=== PATIENT | female | born 1950 | race Caucasian/White ===

== ENCOUNTER 2016-09-23 18:40 | Observation (INO) | payer BC ==
[2016-09-23 19:44] LABS: Hematocrit 42 % (35-47); Hemoglobin 14.1 g/dl (12.0-16.0); Mean Corpuscular HGB Conc 34 g/dl (31-36); Mean Corpuscular Hemoglobin 30 pg (27-31); Mean Corpuscular Volume 89 fL (80-97); Mean Platelet Volume 10 um3 (7.4-10.4); Red Blood Count 4.74 10^6/ul (4.0-5.4); Red Cell Distribution Width 13 % (10.5-15); White Blood Count 8.6 10^3/ul (3.5-10.8)
[2016-09-23 19:55] LABS: Albumin 4.2 g/dL (3.2-5.2); BUN/Creatinine Ratio 11.6 (8-20); Calcium 9.3 mg/dL (8.6-10.3); EGFR African American 75.9 (>60); Globulin 3.1 g/dL (2-4); Magnesium 2.1 mg/dL (1.9-2.7); Total Bilirubin 0.3 mg/dL (0.2-1.0); Total Protein 7.3 g/dL (6.4-8.9)
[2016-09-23 20:08] LABS: TSH (Thyroid Stimulating Horm) 2.05 mcIU/mL (0.34-5.60)
[2016-09-23 20:15] LABS: Urine Bilirubin Negative (Negative); Urine Glucose Negative (Negative); Urine Nitrite Negative (Negative)
--- NOTE | 2016-09-23 20:22 | RAD ---
Indication: Palpitations. Single frontal view of the chest performed at 1935 hours was reviewed. No prior study is available for comparison. No mediastinal shift is noted. Heart is of normal size and configuration. Lung berry appear clear. IMPRESSION: NO ACTIVE CARDIOPULMONARY DISEASE IS NOTED.
--- NOTE | 2016-09-23 21:00 | ED ---
Elodia Padron Matthew, scribed for Wilmar Li on 09/23/16 at 1934 . Palpitations / Dysrhythmia - HPI Summary HPI Summary: A 65 y/o female presents to the ED with palpitations for the past 2 hours. She' s had them intermittently for the past week, but they intensified in the last 2 hours. The palpitations is described as irregular. Associated symptoms include SOB and mild dizziness. The patient denies chest pain. She's never had a stress test. No Hx of AL. The patient is a former smoker. - History of Current Complaint Chief Complaint: EDShortnessOfBreath Time Seen by Provider: 09/23/16 19:18 Hx Obtained From: Patient Onset/Duration: Gradual Onset, Lasting Hours, Still Present Severity Initially: Moderate Severity Currently: Moderate Character: Irregular Associated Signs & Symptoms: Dizzy, Shortness of Breath - Allergy/Home Medications Allergies/Adverse Reactions: Allergies Allergy/AdvReac Type Severity Reaction Status Date / Time Morphine Allergy Severe Vomiting Verified 07/17/12 15:34 DECLAMYCIN Allergy Intermediate Hives Uncoded 04/24/12 16:46 ENVIRONMENTAL Allergy Mild Congestion Uncoded 05/11/12 18:29 PMH/Surg Hx/FS Hx/Imm Hx Endocrine/Hematology History: Denies: Hx Diabetes, Hx Thyroid Disease Cardiovascular History: Denies: Hx Hypertension Respiratory History: Denies: Hx Asthma, Hx Chronic Obstructive Pulmonary Disease (COPD) GI History: Denies: Hx Ulcer - Cancer History Cancer Type, Location and Year: GLAUCOMA Hx Chemotherapy: No Hx Radiation Therapy: No - Surgical History Surgery Procedure, Year, and Place: HYSTERECTOMY. APPENDECTOMY. CATARACT RIGHT EYE Infectious Disease History: No Infectious Disease History: Denies: Hx Hepatitis, Hx Human Immunodeficiency Virus (HIV), Traveled Outside the [place] in Last 30 Days - Family History Known Family History: Positive: Unknown - The patient is adopted - Social History Alcohol Use: None Substance Use Type: Reports: None Smoking Status (MU): Never Smoked Tobacco Review of Systems Constitutional: Negative Eyes: Negative ENT: Negative Positive: Palpitations. Negative: Chest Pain Positive: Shortness Of Breath Gastrointestinal: Negative Genitourinary: Negative Musculoskeletal: Negative Skin: Negative Neurological: Other - Dizziness Psychological: Normal All Other Systems Reviewed And Are Negative: Yes Physical Exam Triage Information Reviewed: Yes Vital Signs On Initial Exam: Initial Vitals Temp Pulse Resp BP Pulse Ox 97.9 F 44 16 182/79 99 09/23/16 18:41 09/23/16 18:41 09/23/16 18:41 09/23/16 18:41 09/23/16 18:41 Vital Signs Reviewed: Yes Appearance: Positive: Well-Appearing, No Pain Distress Skin: Positive: Warm, Skin Color Reflects Adequate Perfusion, Dry Head/Face: Positive: Normal Head/Face Inspection Eyes: Positive: EOMI, NASIR ENT: Positive: Normal ENT inspection Neck: Positive: Supple, Nontender Cardiovascular: Positive: RRR, Pulses are Symmetrical in both Upper and Lower Extremities Abdomen Description: Positive: Nontender, Soft Bowel Sounds: Positive: Present Musculoskeletal: Positive: Normal, Strength/ROM Intact Neurological: Positive: Normal, Sensory/Motor Intact, Alert, Oriented to Person Place, Time Psychiatric: Positive: Affect/Mood Appropriate Diagnostics - Vital Signs Vital Signs Temp Pulse Resp BP Pulse Ox 09/23/16 18:41 97.9 F 44 16 182/79 99 - Laboratory Result Diagrams: 09/23/16 18:55 09/23/16 18:55 Lab Statement: Any lab studies that have been ordered have been reviewed, and results considered in the medical decision making process. - Radiology CXR Xray Interpretation: No Acute Changes - IMPRESSION: NO ACTIVE CARDIOPULMONARY DISEASE IS NOTED. Radiology Interpretation Completed By: Radiologist - EKG 18:52 Cardiac Rate: NL - 80 bpm EKG Rhythm: Sinus Rhythm EKG Interpretation: Bigeminy Course/Dx - Course Assessment/Plan: A 65 y/o female presents to the ED with palpitations for the past 2 hours. She's had them intermittently for the past week, but they intensified in the last 2 hours. EKG showed sinus rhythm at 80 bpm with bigeminy. CXR was negative. Discussed the case with Dr. Cabezas who recommended admission for stress test and Echocardiogram in the morning. Discussed the case with Dr. Palacios who will admit the patient into his services. - Diagnoses Provider Diagnoses: Palpitations, Dizziness, r/o acs - Physician Notifications Discussed Care Of Patient With: Dr. Cabezas (Cardiology) at 20:43 -- Notified of patient's history and recommends admission for Echocardiogram and stress test in the morning. Dr. Palacios (Hospitalist) at 20:53 -- Notified of paitent' s history and will admit the patient. Discharge - Discharge Plan Condition: Stable Disposition: ADMITTED TO [facility] Referrals: Mike Eng, SENIOR DESIGNER [Primary Care Provider] - The documentation as recorded by the Elodia martines Matthew accurately reflects the service I personally performed and the decisions made by , Wilmar Li.
[2016-09-23] MEDS ORDERED: Melatonin (NF) 3 MG TAB PO PRN (21:03)
[2016-09-23] MEDS ORDERED: traMADol TAB* 50 MG PO PRN (21:03)
[2016-09-23] MEDS ORDERED: Acetaminophen TAB* 325 MG PO PRN (21:03)
--- NOTE | 2016-09-23 23:02 | HP ---
HOSPITAL MEDICINE HISTORY AND PHYSICAL: DATE OF ADMISSION: 09/23/16 PRIMARY CARE PROVIDER: Mike Eng NP ATTENDING PHYSICIAN: Dr. Mikel Palacios* (dictation provided by Zenaida Rodriguez NP). CHIEF COMPLAINT: Shortness of breath and palpitations. HISTORY OF PRESENT ILLNESS: Ms. Ceja is a 65-year-old female with past medical history of glaucoma, who presents today to the hospital with concern for shortness of breath and palpitations. Ms. Ceja states that for a long time now she has had issues with intermittent palpitations. She has what she describes as brief spells where she feels a slight bit short of breath and she feels like palpitation in her chest. However, today she had an episode that lasted over an hour and she became concerned that something new was going on and therefore came to the emergency room for evaluation. She denies any recent fever, chills, nausea, abdominal pain, or diarrhea. She states that she has been eating and drinking normally. She does complain of a light congestion and what she suspects as a cold, but again no fever. She states that these spells happen at rest and seem not to have any clear rhyme or reason, but she has been concerned by the fact that they have been increasing in frequency and length. She reports in the past, she has had some similar, but much less intense spells and she had been placed on [place] Thyroid for that but she had been taken off that in 2002 or 2003 by her primary care provider. In the emergency room, Ms. Ceja was found to be in ventricular bigeminy. However, there was concern that there was ST depressions in the inferior lateral leads on her EKG. Her labs are essentially unremarkable and her troponin is 0. PAST MEDICAL HISTORY: 1. History of palpitations. 2. Glaucoma. MEDICATIONS: 1. Ascorbic acid 1000 mg p.o. daily. 2. Calcium acetate/magnesium carb 1 tab p.o. at bedtime. 3. Tafluprost 0.0015% at bedtime. ALLERGIES: To MORPHINE. FAMILY HISTORY: Unobtainable as the patient is adopted. SOCIAL HISTORY: No report of alcohol, tobacco, or drug use. The patient lives with her and her name is Bird and she is the healthcare proxy. REVIEW OF SYSTEMS: A 14-point review of systems was completed with Ms. Ceja and all those not mentioned above were negative. PHYSICAL EXAMINATION GENERAL: Ms. Ceja is sitting in the bed. She is frustrated about being asked the same question over and over, but is in no acute distress. VITAL SIGNS: Temperature 97.9, pulse rate 78, respiratory rate 16, O2 saturation 95% on room air, blood pressure 153/87. LUNGS: Clear to auscultation bilaterally with no accessory muscle use and good aeration. HEART: S1, S2. No murmur, rub, or gallop and regular. ABDOMEN: Soft, nontender with bowel sounds positive x4. NEURO: She is alert and oriented x3. She moves all extremities equally. There is no facial asymmetry or focal weakness. Extraocular movements are intact. DIAGNOSTIC STUDIES/LABORATORY DATA: WBC 8.6, hemoglobin 14.1, hematocrit 42, platelet count 203. INR 0.96, D-dimer less than 200. Sodium 133, potassium 4.0, chloride 100, serum bicarbonate 27, BUN 11, creatinine 0.95, glucose 118, lactic acid 1.2, troponin 0.00, TSH 2.05. Urine is negative for sign of infection. Chest x-ray is normal. EKG is read by Dr. Cabezas as showing ventricular bigeminy, but also showed concern for ST segment abnormalities in the inferior leads. ASSESSMENT: Ms. Ceja is a 65-year-old female with no significant past medical history who presents today at the hospital with concern for worsening episodes of palpitations associated with shortness of breath. Our plans are for observation in the hospital for the followin. Shortness of breath with palpitations. The patient has an abnormal EKG and the concern is that possibly she has evidence of ischemia. Plans will be for observations overnight on telemetry floor. She is going to have a repeat EKG now as she is out of the ventricular bigeminy in order to reassess those ST segments again. In the morning, she will go on for an exercise stress test and transthoracic echocardiogram. 2. Glaucoma. Continue home medications. 3. DVT prophylaxis with early mobility. 4. Disposition to telemetry floor. TIME SPENT: Approximately 60 minutes were spent on admission of this patient, more than half the time spent with the patient at the bedside, reviewing the events leading up to this hospitalization, performing the physical examination, and reviewing my plan of care. ZENAIDA RODRIGUEZ NP CC: Mike Eng, SCRAP PREPARER* [id number]/[facility] #: [id number] [facility] HOSPITALYvonne
[2016-09-24] MEDS ORDERED: Aspirin Low Dose CHEW TAB* 81 MG PO ONE (02:00)
--- NOTE | 2016-09-24 10:02 | PN ---
Subjective Date of Service: 09/24/16 Interval History: Patient seen and examined at bedside. She denies CP, SOB, abd pain, n/v. She reports a history of palpitations going back as far as 10 years. She was once on thyroid medication but was found to have to have stable thyroid function in her labs and was discontinued. She had a cardiology consultation several years back but states she was told that "it as all in my head." Telemetry: SR with PVCs 80s Family History: Unchanged from Admission Social History: Unchanged from Admission Past Medical History: Unchanged from Admission Objective Active Medications: Acetaminophen (Tylenol Tab*) 650 mg PO Q6H PRN PRN Reason: FEVER/PAIN Melatonin (Melatonin (Nf)) 3 mg PO BEDTIME PRN; Protocol PRN Reason: Sleep Non-Formulary Medication (Tafluprost 0.0015%(Nf) [Zioptan 0.0015% (Nf)]) 0.015 mg OP BEDTIME HAILEY Tramadol HCl (Ultram*) 50 mg PO Q6H PRN PRN Reason: PAIN Vital Signs 09/23/16 09/24/16 22:16 03:35 Temperature 97.5 F 98.2 F Pulse Rate 83 73 Respiratory 16 16 Rate Blood Pressure 149/85 124/66 (mmHg) O2 Sat by Pulse 96 97 Oximetry Oxygen Devices in Use Now: None Appearance: Female patient, sitting up in bed, in NAD Eyes: PERRLA Ears/Nose/Mouth/Throat: Clear Oropharnyx, Mucous Membranes Moist Neck: NL Appearance and Movements; NL JVP Respiratory: Symmetrical Chest Expansion and Respiratory Effort, Clear to Auscultation Cardiovascular: NL Sounds; No Murmurs; No JVD, RRR Abdominal: NL Sounds; No Tenderness; No Distention Extremities: No Edema Skin: No Rash or Ulcers Neurological: Alert and Oriented x 3 Lines/Tubes/Other Access: Clean, Dry and Intact Peripheral IV Nutrition: Taking PO's Result Diagrams: 09/23/16 18:55 09/23/16 18:55 Assess/Plan/Problems-Billing Assessment: - Patient Problems (1) Palpitations Code(s): R00.2 - PALPITATIONS Comment: With SOB and concern for ST segment abnormalities in the inferior leads. Troponins unremarkable, 0.00 x 3 Stress test negative for ischemia or infarction. Decrease but not complete suppression of ectopy with exercise. Echocardiogram shows no hypokinesis or wall motion abnormality. Recommend outpatient f/u with Holter monitor to monitor PVCs (2) Glaucoma Code(s): H40.9 - UNSPECIFIED GLAUCOMA Comment: Continue home tafluprost gtt. (3) DVT prophylaxis Code(s): CVR1207 - Comment: Early mobility Status and Disposition: OBV admit. D/c to home.
--- NOTE | 2016-09-24 10:29 | RAD ---
Edited for charges. INDICATION: Shortness of breath and palpitations COMPARISON: Chest x-ray dated September 23, 2016 TECHNIQUE: SPECT imaging was performed. Rest images were acquired following the intravenous injection of 10.67 millicuries of technetium 99m tetrofosmin at 0635 hours. Stress images were acquired at 0806 hours after the injection of 25 millicuries of technetium 99m tetrofosmin. FINDINGS: There are no defects of the stress-induced or fixed nature. The cardiac chamber size is normal. There are no wall motion abnormalities. The ejection fraction is calculated at 76 % during stress. IMPRESSION: No scintigraphic evidence of ischemia or infarction. ASSESSMENT: Low risk Based on imaging criteria from ACC/AHA 2002 Guideline Update for the Management of Patients With Chronic Stable Angina Table 23. Noninvasive Risk Stratification. MTDD
[2016-09-24 11:27] LABS: T4 6.38 g/dL (6.09-12.23)
[2016-09-24 11:33] LABS: Free T4 0.82 ng/dL (0.61-1.12)
[2016-09-24 11:37] LABS: Total T3 1.52 ng/mL (0.87-1.78)
[2016-09-24 11:48] VITALS: BP 144/88
--- NOTE | 2016-09-24 15:00 | ECHO ---
Patient: SARAH NATARAJAN Rec#: [id number] : 1950 Date: 09/24/2016 Age: 65y Height: 175 cm / 68.9 in Weight: 62.6 kg / 138.0 lbs Sex: F BSA: 1.76 Room#: [facility] Admit Date#: 09/23/2016 Type: Inpatient Referring: Mikel Palacios MD Reading: Kirill Mcpherson MD Boat Joiner Helper: Kwame Ruiz RDCS Transthoracic Echocardiogram Indication: Palpitation BP: 124/66 HR: 69 Rhythm: NSR Findings History: glaucoma,palpitation Technical Comments: The study quality is good. Completed 1420 Left Ventricle: The left ventricular chamber size is normal. Global left ventricular wall motion and contractility are within normal limits. There is normal left ventricular systolic function. The estimated ejection fraction is 55-60%. Left Atrium: The left atrial chamber size is normal. Right Ventricle: The right ventricular cavity size is normal. The right ventricular global systolic function is normal. Right Atrium: The right atrial cavity size is normal. Aortic Valve: The aortic valve is trileaflet. There is no evidence of aortic regurgitation. There is no evidence of aortic stenosis. Mitral Valve: The mitral valve leaflets appear normal. There is a trace of mitral regurgitation. There is no evidence of mitral stenosis. Tricuspid Valve: There is a physiologic tricuspid regurgitation. Pulmonic Valve: The pulmonic valve structure is not well visualized. Pericardium: There is no pericardial effusion. Aorta: There is no dilatation of the ascending aorta. There is no dilatation of the aortic arch. There is no dilation of the aortic root. Pulmonary Artery: The main pulmonary artery is not well visualized. Venous: The inferior vena cava appears normal in size. There is a greater than 50% respiratory change in the inferior vena cava dimension. Conclusions Global left ventricular wall motion and contractility are within normal limits. There is normal left ventricular systolic function. The estimated ejection fraction is 55-60%. The right ventricular global systolic function is normal. There is no evidence of aortic regurgitation. There is no evidence of aortic stenosis. There is a trace of mitral regurgitation. There is a physiologic tricuspid regurgitation. There is no pericardial effusion. Measurements Name Value Normal Range RVIDd (AP) 2D 2.4 cm (0.9 - 2.6) RVDdMajor (2D) 1.9 cm (2.2 - 4.4) RAd ISD 4CH 4.4 cm (3.4 - 4.9) RA (A4C)W 3 cm (2.9 - 4.6) IVSd (2D) 0.5 cm (0.6 - 1) LVPWd (2D) 0.7 cm (0.6 - 1) LVIDd (2D) 4.8 cm (3.6 - 5.4) LVIDs (2D) 3.2 cm - LV FS (2D) 33 % (25 - 45) Aortic Annulus 1.9 cm (1.4 - 2.6) Ao root diameter (2D) 2.4 cm (2.1 - 3.5) Ascending Ao 2.5 cm (2.1 - 3.4) Aortic arch 2.1 cm (1.8 - 3.4) LA dimension (AP) 2D 3.7 cm (2.3 - 3.8) LAd ISD 4CH 4.3 cm (2.9 - 5.3) LA ISD 4CH W 2.8 cm (2.5 - 4.5) Name Value Normal Range LA ESV SP 4CH (A/L) 32 ml - LA ESV SP 2CH (A/L) 52 ml - LA ESV BP (A/L) 41 ml - LA ESV BP (A/L) index 23.33 ml/m2 - LA ESV SP 4CH (MOD) 30 ml - LA ESV SP 2CH (MOD) 49 ml - Name Value Normal Range MV E-wave Vmax 0.58 m/sec - MV deceleration time 194 msec - MV A-wave Vmax 0.68 m/sec - MV E:A ratio 0.84 ratio - LV septal e' Vmax 0.09 m/sec - LV lateral e' Vmax 0.09 m/sec - LV E:e' septal ratio 6.4 ratio - LV E:e' lateral ratio 6.4 ratio - Name Value Normal Range LVOT diameter 1.9 cm - LVOT Vmax 0.7 m/sec - BRADEN (continuity Vmax) 2 cm2 - BRADEN (continuity VTI) 2.5 cm2 - Name Value Normal Range TR Vmax 2 m/sec - TR peak gradient 17 mmHg - IVC diameter 1.24 cm -
[2016-09-24] MEDS ORDERED: TAFLUPROST OP SCH (21:00)
--- NOTE | 2016-09-27 07:08 | DS ---
DISCHARGE SUMMARY: DATE OF ADMISSION: 09/23/16 DATE OF DISCHARGE: 09/24/16 PROVIDER: Sascha Sena NP ATTENDING PHYSICIAN: Dr. Shirlene Marino *(as dictated by Sascha Sena NP). PRIMARY CARE PROVIDER: KATI Ribera PRIMARY DISCHARGE DIAGNOSES: 1. Shortness of breath and palpitation. 2. Premature atrial and ventricular contractions. SECONDARY DISCHARGE DIAGNOSIS: Glaucoma. MEDICATIONS AT DISCHARGE: 1. MagneBind 1 tab at bedtime. 2. Vitamin C 1000 mg daily. 3. Zioptan eye drops at bedtime. DIAGNOSTIC TESTING DURING THIS HOSPITALIZATION: Transthoracic echocardiogram. Conclusions: Global left ventricular wall motion and contractility are within normal limits. There is normal left ventricular systolic function. The estimated ejection fraction is 55% to 60%. The right ventricular global systolic function is normal. There is no evidence of aortic regurgitation. There is no evidence of aortic stenosis. There is a trace of mitral regurgitation. There is a physiologic tricuspid regurgitation. There is no pericardial effusion. Cardiac stress test, exercise portion reads resting EKG, normal sinus rhythm 69. Nonspecific ST-segment scooping in leads II, III, aVF, and V4 through 6. PACs seen. Exercise by standard Horacio protocol to 7 minutes achieving 10.1 METs , heart rate to 96% age predicted with normal 1-minute recovery heart rate. Baseline hypertension was normal, increased with exertion. No symptoms of ischemia. No EKG changes of ischemia. PVCs and PACs seen throughout exercise with a decrease with increase in heart rate but no complete suppression. Ectopy returned in recovery period. Ventricular trigeminy noted in recovery period. Conclusion: Low- risk Singh score. EKG portion of stress test was decreased but not complete suppression of ectopy with exercise. Nuclear portion of stress test findings, there are no defects of the stress induced or fixed nature. The cardiac chamber size is normal. There are no wall motion abnormalities. The ejection fraction was calculated at 76% during stress. Impression: No scintigraphic evidence of ischemia or infarction. Assessment: Low risk. HOSPITAL COURSE OF STAY: For full details please, refer to the H and P provided by Zenaida Rodriguez NP. In summary, Ms. Ceja is a 65-year-old female with a past medical history significant for palpitations, presented to the ER with concern for extended intermittent palpations. She described brief spells where she started to feel slightly short of breath and was not easily recovering from these episodes. She was admitted for an exercise stress test and an echo with results as previously mentioned. Her troponins were negative, remaining flat at 0.00 x3. She did demonstrate ventricular trigeminy and with multiple PACs and PVCs on the business improvement manager during her course of stay. Following her examination and testing, I did discuss her telemetry findings with Dr. Mcpherson as a side consult. He states that the patient could have Holter monitor in the outpatient setting where we could count the number of events or that the patient could benefit from a beta amena at a small starting dose. I did discuss these options with the patient and she states that she would prefer not to start on any medications but she is open to trying a Holter monitor. 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 This was approximately 10 years ago. The patient also states that she was previously on thyroid medication, as she had thyroid ultrasound that was abnormal. However, her thyroid function and her labs appeared to be normal. Her thyroid medication was discontinued. However, she does note that her thyroid medication when she was on it did suppress the palpitation. We discussed this and she states that she will follow up on this with her PCP. Prior to discharge, the patient was in stable condition, denied any chest pain. She still reports palpitations but states that they have become less in frequency. Again, she declines to start any beta blockers at this time but will follow up with her PCP and obtain a Cardiology consult in the future if she feels it is necessary. I also did stress that a Holter monitor may be helpful in monitoring her PVCs, which she verbalized understanding. CONCERNS AT DISCHARGE: The patient will be discharged to home on 09/24/16 with a planned followup with her PCP on 09/28/16. DIET: Heart-healthy diet. ACTIVITY: As tolerated. CONDITION: Stable. DISPOSITION: To home. TIME SPENT: Time spent on this discharge was approximately 40 minutes. Again, this is only a brief summary of the patient's hospital course of stay. For full details, please refer to the full medical record. If you have any further questions or need further assistance, please feel free to contact me at . SASCHA SENA NP CC: KATI Ribera* [id number]/[facility] #: [id number] JACKELIN
== END 2016-09-24 18:10 | disposition home or self-care (01) ==
LOC: ED 18:40 → MEDTELE 21:42
PROVIDERS: ADMIT Hospitalist; ATTEND Hospitalist
DX: R00.2 Palpitations (principal); R06.02 Shortness of breath; H40.9 Unspecified glaucoma; Z79.899 Other long term (current) drug therapy; R00.8 Other abnormalities of heart beat; I49.1 Atrial premature depolarization
CPT/HCPCS: 36415; 71010; 78452; 80053; 81003; 83605; 83735; 83880; 84436; 84439; 84443; 84479; 84484; 85025; 85379; 85610; 85730; 93005; 93017; 93306; 99284; A9270-GY; A9502; G0378

== ENCOUNTER 2017-03-10 19:04 | Emergency (ER) | payer MEDICARE, BC ==
[2017-03-10] MEDS ORDERED: Tobramycin 0.3% OPHTH.SOL* 5 ML BOT (regular eye drops) ONE (22:26)
[2017-03-10] MEDS ORDERED: Tobramycin/Dexameth OPTH.SUSP* 2.5 M L BTL BOTH EYES SCH (22:30)
[2017-03-10 22:35] VITALS: BP 160/76
--- NOTE | 2017-03-10 22:40 | ED ---
Lacie Padron Rebecca, scribed for Wilmar Li on 03/10/17 at 2213 . Throat Pain/Nasal Congestion - HPI Summary HPI Summary: Pt is a 66 y/o F who presents to ED c/o bilateral eye erythema and pruritis. Sx began 2 days ago at night and have been worsening since onset. Pt reports they are "extremely itchy." Denies any discharge or crust upon waking up. Confirms she can see. PMHx seasonal allergies, glaucoma and dry eye syndrome. - History of Current Complaint Chief Complaint: EDEyeProblem Time Seen by Provider: 03/10/17 22:00 Hx Obtained From: Patient Onset/Duration: Lasting Days - 2 days, Still Present Severity: Severe - "extremely itchy" Associated Signs And Symptoms: Positive: Negative Related History: Seasonal Allergies - Allergies/Home Medications Allergies/Adverse Reactions: Allergies Allergy/AdvReac Type Severity Reaction Status Date / Time Morphine AdvReac Mild Vomiting Verified 02/04/17 12:29 DECLAMYCIN Allergy Mild Hives Uncoded 02/04/17 12:29 ENVIRONMENTAL Allergy Mild Congestion Uncoded 02/04/17 12:29 PMH/Surg Hx/FS Hx/Imm Hx Endocrine/Hematology History: Denies: Hx Diabetes, Hx Thyroid Disease Cardiovascular History: Denies: Hx Angina, Hx Coronary Artery Disease, Hx Hypercholesterolemia, Hx Hypertension, Hx Myocardial Infarction, Hx Valvular Heart Disease Respiratory History: Denies: Hx Asthma, Hx Chronic Obstructive Pulmonary Disease (COPD) GI History: Denies: Hx Ulcer History: Denies: Hx Renal Disease Sensory History: Reports: Hx Glaucoma, Other Sensory Impairments - Dry eye syndrome EENT History: Reports: Hx Seasonal Allergies - Cancer History Cancer Type, Location and Year: GLAUCOMA Hx Chemotherapy: No Hx Radiation Therapy: No - Surgical History Surgery Procedure, Year, and Place: HYSTERECTOMY. APPENDECTOMY. CATARACT RIGHT EYE Infectious Disease History: No Infectious Disease History: Denies: Hx Hepatitis, Hx Human Immunodeficiency Virus (HIV), Traveled Outside the [place] in Last 30 Days - Family History Known Family History: Positive: Unknown - The patient is adopted - Social History Alcohol Use: None Substance Use Type: Reports: None Smoking Status (MU): Former Smoker Review of Systems Negative: Fever Positive: Erythema - Bilateral, Other - Bialteral eye pruritis; NEGATIVE: crust upon waking up. Negative: Drainage All Other Systems Reviewed And Are Negative: Yes Physical Exam - Summary Physical Exam Summary: Appearance: Well appearing, no pain distress Skin: warm, dry, reflects adequate perfusion Head/face: normal Eyes: EOMI, NASIR, bilateral redness and swelling of the eyelids, visual acuity is intact ENT: normal Neck: supple, nontender Respiratory: CTA, breath sounds present Cardiovascular: RRR, pulses symmetrical Abdomen: nontender, soft Bowel: present Musculoskeletal: normal, strength/ROM intact Neuro: normal, sensory motor intact, A&Ox3 Triage Information Reviewed: Yes Vital Signs On Initial Exam: Initial Vitals Temp Pulse Resp BP Pulse Ox 97.6 F 74 14 157/87 100 03/10/17 19:11 03/10/17 19:11 03/10/17 19:11 03/10/17 19:11 03/10/17 19:11 Vital Signs Reviewed: Yes Diagnostics - Vital Signs Vital Signs Temp Pulse Resp BP Pulse Ox 03/10/17 21:37 99.2 F 65 157/75 97 03/10/17 19:12 97.6 F 73 14 157/87 100 03/10/17 19:11 97.6 F 74 14 157/87 100 - Laboratory Lab Statement: Any lab studies that have been ordered have been reviewed, and results considered in the medical decision making process. EENT Course/Dx - Course Assessment/Plan: Pt is a 66 y/o F who presents to ED c/o bilateral eye erythema and pruritis. Sx began 2 days ago at night and have been worsening since onset. Pt reports they are "extremely itchy." Denies any discharge or crust upon waking up. Confirms she can see. PMHx seasonal allergies, glaucoma and dry eye syndrome. In the ED course, pt received Tobradex. Pt will be D/C to home with Dx of allergic conjunctivitis, Rx for Naphcon-A and a follow up with eyes. She understands and agrees. Elevated BP noted and advised to f/u with PCP. - Diagnoses Provider Diagnoses: Allergic conjunctivitis Discharge - Discharge Plan Condition: Stable Disposition: HOME Prescriptions: Naphazoline/Pheniramine OPTH* [Naphcon-A*] 1 drop BOTH EYES QID #1 btl Patient Education Materials: Conjunctivitis (ED) Referrals: Isrrael Tidwell MD [Medical Doctor] - 3 Days The documentation as recorded by the Lacie martines Rebecca accurately reflects the service I personally performed and the decisions made by me, Wilmar Li.
== END 2017-03-10 22:35 | disposition home or self-care (01) ==
LOC: ED 19:04
DX: H10.10 Acute atopic conjunctivitis, unspecified eye (principal)
CPT/HCPCS: 99282; A9270-GY

== ENCOUNTER 2017-03-11 06:07 | Emergency (ER) | payer MEDICARE, BC ==
[2017-03-11] MEDS ORDERED: predniSONE TAB* 20 MG PO ONE (06:24)
--- NOTE | 2017-03-11 06:41 | ED ---
Lacie Padron Rebecca, scribed for Wilmar Li on 03/11/17 at 0622 . Allergic Reaction/Systemic - HPI Summary HPI Summary: Pt is a 66 y/o F who presents to ED c/o lower lip swelling, worsening bilateral eye erythema, throat tightening and chest tightness. Sx began 2 days ago, worsening this morning upon waking up. Has not take any medication for the sx as she cannot take antihistamines secondary to glaucoma. Currently,pain scale is ranked 0/10. Pt reports that she believes she was bit by fleas 2 days ago while at a music rehearsal and noticed what looked like "flea bites." No PMHx, COPD, asthma. Last stress test was in September which was normal. Pt was evaluated by [facility] ED last night for bilateral eye erythema and was D/C to home with Dx of allergic conjunctivitis and an Rx for Naphcon-A. - History of Current Complaint Chief Complaint: EDAllergicReaction Hx Obtained From: Patient Onset/Duration: Started days ago - 2 days, Still Present, Worse Since - this morning upon waking up Severity Currently: None Pain Intensity: 0 Pain Scale Used: 0-10 Numeric Location: Discrete @ - Lower lip Character: Swelling Aggravating Factor(s): Nothing Alleviating Factor(s): Nothing Associated Signs And Symptoms: Positive: Throat Tightening - Allergies/Home Medications Allergies/Adverse Reactions: Allergies Allergy/AdvReac Type Severity Reaction Status Date / Time Morphine AdvReac Mild Vomiting Verified 02/04/17 12:29 DECLAMYCIN Allergy Mild Hives Uncoded 02/04/17 12:29 ENVIRONMENTAL Allergy Mild Congestion Uncoded 02/04/17 12:29 PMH/Surg Hx/FS Hx/Imm Hx Endocrine/Hematology History: Denies: Hx Diabetes, Hx Thyroid Disease Cardiovascular History: Denies: Hx Angina, Hx Coronary Artery Disease, Hx Hypercholesterolemia, Hx Hypertension, Hx Myocardial Infarction, Hx Valvular Heart Disease Respiratory History: Denies: Hx Asthma, Hx Chronic Obstructive Pulmonary Disease (COPD) GI History: Denies: Hx Ulcer History: Denies: Hx Renal Disease Sensory History: Reports: Hx Glaucoma, Other Sensory Impairments - Dry eye syndrome Opthamlomology History: Reports: Hx Glaucoma, Other Sensory Impairments - Dry eye syndrome - Cancer History Cancer Type, Location and Year: GLAUCOMA Hx Chemotherapy: No Hx Radiation Therapy: No - Surgical History Surgery Procedure, Year, and Place: HYSTERECTOMY. APPENDECTOMY. CATARACT RIGHT EYE Infectious Disease History: No Infectious Disease History: Denies: Hx Hepatitis, Hx Human Immunodeficiency Virus (HIV), Traveled Outside the US in Last 30 Days - Family History Known Family History: Positive: Unknown - The patient is adopted - Social History Alcohol Use: None Substance Use Type: Reports: None Smoking Status (MU): Former Smoker Review of Systems Positive: Erythema - Bilateral Positive: Other - Throat tightening Positive: Other - Chest tightness Positive: Other - lower lip swelling All Other Systems Reviewed And Are Negative: Yes Physical Exam - Summary Physical Exam Summary: Appearance: Well appearing, no pain distress Skin: warm, dry, reflects adequate perfusion Head/face: lips and face are mildly swollen Eyes: EOMI, NASIR, swollen eyelids bilaterally ENT: normal Neck: supple, nontender Respiratory: CTA, breath sounds present Cardiovascular: RRR, pulses symmetrical Abdomen: nontender, soft Bowel: present Musculoskeletal: normal, strength/ROM intact Neuro: normal, sensory motor intact, A&Ox3 Triage Information Reviewed: Yes Vital Signs On Initial Exam: Initial Vitals Temp Pulse Resp BP Pulse Ox 98.5 F 80 16 166/79 99 03/11/17 06:15 03/11/17 06:15 03/11/17 06:15 03/11/17 06:15 03/11/17 06:15 Vital Signs Reviewed: Yes Diagnostics - Vital Signs Vital Signs Temp Pulse Resp BP Pulse Ox 03/11/17 06:15 98.5 F 80 16 166/79 99 - Laboratory Lab Statement: Any lab studies that have been ordered have been reviewed, and results considered in the medical decision making process. Allergic Reaction Course/Dx - Course Assessment/Plan: Pt is a 66 y/o F who presents to ED c/o facial swelling, worsening bilateral eye erythema, throat tightening and chest tightness. Sx began 2 days ago, worsening this morning upon waking up. Has not take any medication for the sx as she cannot take antihistamines secondary to glaucoma. Currently,pain scale is ranked 0/10. Pt reports that she believes she was bit by fleas 2 days ago while at a music rehearsal and noticed what looked like "flea bites." No PMHx, COPD, asthma. Last stress test was in September which was normal. Pt was evaluated by [facility] ED last night for bilateral eye erythema and was D/C to home with Dx of allergic conjunctivitis and an Rx for Naphcon-A. In the ED course, pt was administered Deltasone. Pt refused blood tests and EKG. Pt will be D/C to home with Dx of allergic reaciton, Rx for Prednisone and a follow up with her PCP and Dr. Kan (eyes). She understands and agrees. Elevated BP noted and advised to f/u with PCP. - Diagnoses Provider Diagnoses: Allergic reaction Discharge - Discharge Plan Condition: Stable Disposition: HOME Prescriptions: predniSONE TAB* [Deltasone TAB*] 40 mg PO DAILY #4 tab Patient Education Materials: General Allergic Reaction (ED) Referrals: Isrrael Tidwell MD [Medical Doctor] - 3 Days Mike Eng NP [Primary Care Provider] - 3 Days The documentation as recorded by the Lacie martines Rebecca accurately reflects the service I personally performed and the decisions made by Guillermo nicole Emmanuel.
[2017-03-11 07:25] VITALS: BP 147/68
== END 2017-03-11 07:26 | disposition home or self-care (01) ==
LOC: ED 06:07
DX: T78.40XA Allergy, unspecified, initial encounter (principal); X58.XXXA Exposure to other specified factors, initial encounter; Y92.9 Unspecified place or not applicable; Z87.891 Personal history of nicotine dependence
CPT/HCPCS: 99282; J7512

== ENCOUNTER 2019-07-04 20:13 | Emergency (ER) | payer MEDICARE, OTHER ==
[2019-07-04] MEDS ORDERED: Bupivacaine 0.5% W/EPI SDV* 30 ML VIAL INJ ONE (20:28)
--- NOTE | 2019-07-04 20:31 | ED ---
Throat Pain/Nasal Congestion - HPI Summary HPI Summary: Patient is a 68 y/o F presenting to [facility] with complaints of pain at her right upper teeth. Pain onset last night, 07/03/19. Pain progressively worsened since onset. On triage, pain is rated 10/10. Patient had been evaluated at [facility] earlier today, 07/04/19. She states that she was prescribed Augmentin and Toradol. However, she states that she has not experienced any relief in Sx with these medications and that she is unable to see a dentist until two days from now. Hx of glaucoma noted. She is agreeable with a dental block. She notes that she had a crown placed in the area where her pain is approximately six months ago. 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 Home medications and allergies are reviewed. - History of Current Complaint Chief Complaint: EDDentalPain Time Seen by Provider: 07/04/19 20:23 Hx Obtained From: Patient Onset/Duration: Still Present, Worse Since Severity: Worse Since: Associated Signs And Symptoms: Positive: Negative Cough: None - Allergies/Home Medications Allergies/Adverse Reactions: Allergies Allergy/AdvReac Type Severity Reaction Status Date / Time MS Morphine [Morphine] AdvReac Mild Vomiting Verified 07/04/19 22:04 DECLAMYCIN Allergy Mild Hives Uncoded 07/04/19 22:04 ENVIRONMENTAL Allergy Mild Congestion Uncoded 07/04/19 22:04 PMH/Surg Hx/FS Hx/Imm Hx Endocrine/Hematology History: Denies: Hx Diabetes, Hx Thyroid Disease Cardiovascular History: Denies: Hx Angina, Hx Coronary Artery Disease, Hx Hypercholesterolemia, Hx Hypertension, Hx Myocardial Infarction, Hx Valvular Heart Disease Respiratory History: Denies: Hx Asthma, Hx Chronic Obstructive Pulmonary Disease (COPD) GI History: Denies: Hx Ulcer History: Denies: Hx Renal Disease Sensory History: Reports: Hx Glaucoma, Other Sensory Impairments - Dry eye syndrome Opthamlomology History: Reports: Hx Glaucoma, Other Sensory Impairments - Dry eye syndrome - Cancer History Cancer Type, Location and Year: GLAUCOMA Hx Chemotherapy: No Hx Radiation Therapy: No - Surgical History Surgery Procedure, Year, and Place: HYSTERECTOMY. APPENDECTOMY. CATARACT RIGHT EYE Infectious Disease History: No Infectious Disease History: Denies: Hx Hepatitis, Hx Human Immunodeficiency Virus (HIV), Traveled Outside the US in Last 30 Days - Family History Known Family History: Positive: Unknown - The patient is adopted - Social History Alcohol Use: None Substance Use Type: Reports: None Smoking Status (MU): Former Smoker Review of Systems Negative: Fever - on vitals, temp is 96.7 F Positive: Dental Pain All Other Systems Reviewed And Are Negative: Yes Physical Exam - Summary Physical Exam Summary: Appearance: Well-appearing, Well-nourished, lying in bed comfortable Skin: Warm, dry, no obvious rash Eyes: sclera anicteric, no conjunctival pallor ENT: There is tenderness with percussion at the first pre-molar at the upper right mouth. Mucous membranes moist Neck: deferred Respiratory: No signs of respiratory distress Cardiovascular: Appears well perfused, pulses are nml Abdomen: deferred Musculoskeletal: Moving all 4 extremities without obvious discomfort Neurological: Awake and alert, mentation is normal, speech is fluent and appropriate Psychiatric: affect is normal, does not appear anxious or depressed Triage Information Reviewed: Yes Vital Signs On Initial Exam: Initial Vitals Temp Pulse Resp BP Pulse Ox 96.7 F 73 20 207/107 100 07/04/19 20:19 07/04/19 20:19 07/04/19 20:19 07/04/19 20:19 07/04/19 20:19 Vital Signs Reviewed: Yes Procedures - Sedation Patient Received Moderate/Deep Sedation with Procedure: No Diagnostics - Vital Signs Vital Signs Temp Pulse Resp BP Pulse Ox 07/04/19 20:19 96.7 F 73 20 207/107 100 - Laboratory Lab Statement: Any lab studies that have been ordered have been reviewed, and results considered in the medical decision making process. Re-Evaluation - Re-Evaluation First Eval Re-Evaluation Time: 20:48 Comment: Dental block administered, 2 cc of 0.5% marcaine with epi was used. Second Eval Re-Evaluation Time: 21:19 Comment: Patient reports relief in pain at some areas, but states that there are some areas that are still painful. Additional dental block was done. 2 cc of 0.5% marcaine with epi used. Third Eval Re-Evaluation Time: 21:49 Comment: Sx are improved after second dental block. Patient discharged to home and will follow up with her dentist. EENT Course/Dx - Course Course Of Treatment: Patient is a 68 y/o F presenting to [facility] with complaints of pain at her right upper teeth. Pain onset last night, 12/20/19. Pain progressively worsened since onset. On triage, pain is rated 10/10. Patient had been evaluated at [facility] earlier today, 07/04/19. She states that she was prescribed Augmentin and Toradol. However, she states that she has not experienced any relief in Sx with these medications and that she is unable to see a dentist until two days from now. Hx of glaucoma noted. She is agreeable with a dental block. On physical exam, there is tenderness with percussion at the first pre-molar at the upper right mouth. Dental block administered, 2 cc of 0.5% marcaine with epi was used. Patient reports relief in pain at some areas , but states that there are some areas that are still painful. Additional dental block was done. 2 cc of 0.5% marcaine with epi used. Sx are improved after second dental block. Patient discharged to home. - Diagnoses Provider Diagnoses: Pain, dental Discharge ED - Sign-Out/Discharge Documenting (check all that apply): Patient Departure - discharge - Discharge Plan Condition: Good Disposition: HOME Patient Education Materials: Toothache (ED) Referrals: Mike Eng, [employer] [Primary Care Provider] - Additional Instructions: Hopefully the antibiotics will help over the weekend if the problem is a dental abscess, which it usually is. - Billing Disposition and Condition Condition: GOOD Disposition: Home - Attestation Statements Document Initiated by Shae: Yes Documenting Scribe: NIKKO LOBATO Provider For Whom Shae is Documenting (Include Credential): VASHTI DE LEON MD Scribe Attestation: NIKKO Padron, scribed for VASHTI DE LEON MD on 07/05/19 at 0535. Scribe Documentation Reviewed: Yes Provider Attestation: The documentation as recorded by the NIKKO martines accurately reflects the service I personally performed and the decisions made by me, VASHTI DE LEON MD Status of Scribe Document: Viewed
--- OUTSIDE RECORDS SUMMARY | 2019-07-04 20:59 | XMS REPORT | Continuity of Care Document ---
:1950 External Reference #:[id number] Author Name Jass Arango MD Address [address] [place] [address] Care Team Providers Name Role Phone Mike Eng F.N.P. 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 Onset: 03/30/2008 Social History Type Date Description Comments Sex Unknown Allergies, Adverse Reactions, Alerts Active Allergies Reaction Severity Comments Date Decongestant 03/30/2008 Morphine vomiting 06/19/2019 Medications Active Medications SIG Qnty Indications Ordering Provider Date Lumigan Unknown 0.01% Solution [place] 3-6-9 Complex 1 by mouth every Unknown day Capsules Calcium Citrate Plus as directed Unknown Magnesium & Minerals Tablets Vitamin-B Complex 1 by mouth every Unknown day Tablets Immunizations Description No Information Available Vital Signs Date Vital Result Comment 06/19/2019 9:34am Weight 142.00 lb Weight 64.411 kg Height 65 inches 5'5" Height in cm's 165.1 cm BMI (Body Mass Index) 23.6 kg/m2 03/30/2008 2:39pm BP Systolic 141 mmHg BP Diastolic 83 mmHg Heart Rate 77 /min Respiratory Rate 16 /min Results Description No Information Available Procedures Description No Information Available Medical Devices Description No Information Available Encounters Type Date Location Provider Dx Diagnosis Office Visit 06/19/2019 [place],After Jass Arango H69.82 Other specified 9:30a 07/15/07 disorders of Eustachian tube, left ear H90.5 Unspecified sensorineural hearing loss Assessments Date Code Description Provider 06/19/2019 H69.82 Other specified disorders of Eustachian tube, Jass Arango MD left ear 06/19/2019 H90.5 Unspecified sensorineural hearing loss Jass Arango MD Plan of Treatment 06/19/2019 - Jass Arango MDH69.82 Other specified disorders of Eustachian tube, left earComments:My clinical impression is the patient has been experiencing eustachian tube symptoms. I suggested Flonase 2 puffs both sides once a day she is already started this she is only been on it for 2 weeks typically it is necessary to be on it at least 3-4 months. This was advised to the patient recheck back only as [id number] Unspecified sensorineural hearing loss Functional Status Description No Information Available Mental Status Description No Information Available Referrals Description No Information Available
[2019-07-04 22:06] VITALS: BP 0/0
== END 2019-07-04 22:05 | disposition home or self-care (01) ==
LOC: ED 20:13
DX: K08.89 Other specified disorders of teeth and supporting structures (principal); Z88.1 Allergy status to other antibiotic agents; Z88.5 Allergy status to narcotic agent; Z87.891 Personal history of nicotine dependence
CPT/HCPCS: 99282

== ENCOUNTER 2019-07-16 15:13 | Inpatient (IN) | payer MEDICARE, OTHER ==
--- NOTE | 2019-07-16 15:46 | ED ---
HPI Chest Pain - HPI Summary HPI Summary: This pt is a 68 Y/O F presenting to [facility] with a CC of mid sternal chest pain that has radiated to her entire chest and is currently rated an 8/10 in severity. 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 She states that she has no alleviating factors. She states that prior to the chest pain she had nausea and fatigue. 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 She states that she denies any recent fevers, chills, headaches, SOB, vomiting, and diarrhea. She states that she had a tooth extraction and a bone graph yesterday and was prescribed oxycodone but states that she tries to avoid the use of pain medications. She has increased pain with palpation. - History of Current Complaint Chief Complaint: EDChestPainROMI Time Seen by Provider: 07/16/19 15:34 Hx Obtained From: Patient Onset/Duration: Started Hours Ago - 1.5, Still Present Time of Onset: 14:00 Timing: Constant Initial Severity: Severe Current Severity: Severe Pain Intensity: 8 Pain Scale Used: 0-10 Numeric Chest Pain Location: Mid Sternal Chest Pain Radiates: Yes Chest Pain Radiates To:: Other - entire chest Character: Sharp/Stabbing Aggravating Factor(s): Exertion, Other: - palpation Alleviating Factor(s): Nothing Associated Signs and Symptoms: Positive: Negative - diarrhea, Chest Pain, Nausea. Negative: Headaches, Shortness of Breath, Fever, Chills, Vomiting - Additional Pertinent History Primary Care Physician: [id number] - Allergy/Home Medications Allergies/Adverse Reactions: Allergies Allergy/AdvReac Type Severity Reaction Status Date / Time demeclocycline Allergy Mild Hives Verified 07/16/19 19:23 [From Declomycin] morphine Allergy Vomiting Verified 07/16/19 15:58 ENVIRONMENTAL Allergy Mild Congestion Uncoded 07/04/19 22:04 Home Medications: Home Medications Albuterol HFA INHALER* [Ventolin HFA Inhaler*] 2 puff INH TID PRN 07/16/19 [ History Confirmed 07/16/19] Ascorbic Acid TAB* [Vitamin C TAB*] 1,000 mg PO DAILY 07/16/19 [History Confirmed 07/16/19] Bimatoprost 0.01% OPHTH (NF) [Lumigan 0.01% OPHTH (NF)] 1 drop OPHTHALMIC QPM [History Confirmed 07/16/19] Calcium Carbonate/Mag Carb [Magnebind 300] 1 tab PO BEDTIME 07/16/19 [History Confirmed 07/16/19] Hydrocodone/Ibuprofen 7.5-200 1 tab PO QID 07/16/19 [History Confirmed 07/16/19] PMH/Surg Hx/FS Hx/Imm Hx Previously Healthy: Yes Endocrine/Hematology History: Denies: Hx Diabetes, Hx Thyroid Disease Cardiovascular History: Denies: Hx Angina, Hx Coronary Artery Disease, Hx Hypercholesterolemia, Hx Hypertension, Hx Myocardial Infarction, Hx Valvular Heart Disease Respiratory History: Denies: Hx Asthma, Hx Chronic Obstructive Pulmonary Disease (COPD) GI History: Denies: Hx Ulcer History: Denies: Hx Renal Disease Sensory History: Reports: Hx Glaucoma, Other Sensory Impairments - Dry eye syndrome Opthamlomology History: Reports: Hx Glaucoma, Other Sensory Impairments - Dry eye syndrome - Cancer History Cancer Type, Location and Year: GLAUCOMA Hx Chemotherapy: No Hx Radiation Therapy: No - Surgical History Surgical History: Yes Surgery Procedure, Year, and Place: HYSTERECTOMY. APPENDECTOMY. CATARACT RIGHT EYE - Immunization History Date of Tetanus Vaccine: utd Date of Influenza Vaccine: fall 2018 Immunizations Up to Date: Yes Infectious Disease History: No Infectious Disease History: Denies: Hx Hepatitis, Hx Human Immunodeficiency Virus (HIV), Traveled Outside the [place] in Last 30 Days - Family History Known Family History: Positive: Unknown - The patient is adopted - Social History Occupation: Retired Lives: With Family Alcohol Use: None Hx Substance Use: No Substance Use Type: Reports: None Hx Tobacco Use: Yes Smoking Status (MU): Former Smoker Review of Systems Positive: Fatigue. Negative: Fever, Chills Positive: Chest Pain Negative: Shortness Of Breath Positive: Nausea. Negative: Vomiting, Diarrhea Negative: Headache All Other Systems Reviewed And Are Negative: Yes Physical Exam - Summary Physical Exam Summary: Appearance: The patient is well-nourished in no acute distress and in no acute pain. Skin: The skin is warm and dry and skin color reflects adequate perfusion. HEENT: The head is normocephalic and atraumatic. The pupils are equal and reactive. The conjunctivae are clear and without drainage. Nares are patent and without drainage. Mouth reveals moist mucous membranes and the throat is without erythema and exudate. The external ears are intact. The ear canals are patent and without drainage. The tympanic membranes are intact. Neck: The neck is supple with full range of motion and non-tender. There are no carotid bruits. There is no neck vein distension. Respiratory: Chest is non-tender. Lungs are clear to auscultation and breath sounds are symmetrical and equal. Cardiovascular: Heart is regular rate and rhythm. There is no murmur or rub auscultated. There is no peripheral edema and pulses are symmetrical and equal. Abdomen: The abdomen is soft and non-tender. There are normal bowel sounds heard in all four quadrants and there is no organomegaly palpated. Musculoskeletal: There is no back tenderness noted. Extremities are non-tender with full range of motion. There is good capillary refill. There is no peripheral edema or calf tenderness elicited. Neurological: Patient is alert and oriented to person, place and time. The patient has symmetrical motor strength in all four extremities. Cranial nerves are grossly intact. Deep tendon reflexes are symmetrical and equal in all four extremities. Psychiatric: The patient has an appropriate affect and does not exhibit any anxiety or depression. Triage Information Reviewed: Yes Vital Signs On Initial Exam: Initial Vitals Temp Pulse Resp BP Pulse Ox 98.0 F 80 16 177/92 99 07/16/19 15:28 07/16/19 15:28 07/16/19 15:28 07/16/19 15:28 07/16/19 15:28 Vital Signs Reviewed: Yes Procedures - Sedation Patient Received Moderate/Deep Sedation with Procedure: No Diagnostics - Vital Signs Vital Signs Temp Pulse Resp BP Pulse Ox 07/16/19 15:28 98.0 F 80 16 177/92 99 - Laboratory Result Diagrams: 07/16/19 15:44 07/16/19 15:44 Lab Statement: Any lab studies that have been ordered have been reviewed, and results considered in the medical decision making process. - EKG 1516 Cardiac Rate: NL - 79 BPM EKG Rhythm: Atrial Flutter ST Segment: Normal, Other Ectopy: PVCs Summary of EKG Findings: Atrial Flutter at 79 BPM, Minimal ST elevation in aVL, V5, and V6, PVCs, no STEMI. Intepreted by Dr. Erwin 07/16/2019 1520. 1706 Cardiac Rate: NL - 85 BPM EKG Rhythm: Atrial Flutter ST Segment: Other Ectopy: PVCs EKG Comparison: No Significant Change - previous EKG at 1516. Summary of EKG Findings: Atrial Flutter at 85 BPM, Minimal ST elevation in aVL, V5, and V6, PVCs, no STEMI. No change from previous EKG taken 07/16/[address] Erwin at 07/16/2019 1711. Re-Evaluation - Re-Evaluation First Eval Re-Evaluation Time: 16:45 Change: Unchanged Comment: Pt's first troponin was 4.42 Second Eval Re-Evaluation Time: 17:30 Comment: Pt's 2nd Troponin was 6.22. Chest Pain Course/Dx - Course Course Of Treatment: Ms. Ceja presented with about 90 minutes of an atypical chest pain. She was nontoxic in appearance of her vital signs are stable. She was placed on a monitor while EKG, chest x-ray and labs were obtained. Her EKG was unchanged from previous EKGs. Her initial troponin returned at 4.6. I spoke with Dr. Browne who spoke with Dr. Short. Dr. Short came to the department and took the patient to the Toy [employer] Former Supervisor. She had taken 81 mg aspirin's morning and give her 243 additional as well as starting her on heparin protocol. - Diagnoses Provider Diagnoses: NSTEMI (non-ST elevated myocardial infarction) - Provider Notifications Discussed Care Of Patient With: Scar Short Instructed by Provider To: Admit As Inpatient - Critical Care Time Critical Care Time: 30-74 min Discharge ED - Sign-Out/Discharge Documenting (check all that apply): Patient Departure - admitted - Discharge Plan Condition: Stable Disposition: ADMITTED TO [facility] - Billing Disposition and Condition Condition: STABLE Disposition: Admitted to [facility] - Attestation Statements Document Initiated by Scribe: Yes Documenting Scribe: Israel Cruz Provider For Whom Shae is Documenting (Include Credential): Rigo Erwin MD Scribe Attestation: Israel Padron, scribed for Rigo Erwin MD on 07/16/19 at 2125. Scribe Documentation Reviewed: Yes Provider Attestation: The documentation as recorded by the Israel martines accurately reflects the service I personally performed and the decisions made by me, Rigo Erwin MD Status of Scribe Document: Viewed Consult Consult: Dr. Browne, chief substation operator, was consulted at 164 recommended doing a repeat EKG. He also stated that he will call Dr. Short, title officer, for further follow up. Dr. Short called back at 165. He states he will see the pt in the ED and recommends a Heparin Drip.
[2019-07-16 16:03] LABS: ABS Eosinophils 0.2 10^3/ul (0-0.6); ABS Lymphocytes 1.5 10^3/ul (1.0-4.8); ABS Monocytes 0.7 10^3/ul (0-0.8); ABS Neutrophils 5.4 10^3/ul (1.5-7.7); Eosinophil % 2.3 %; Hematocrit 39 % (35-47); Hemoglobin 13.1 g/dL (12.0-16.0); Lymphocyte % 18.8 %; Mean Corpuscular HGB Conc 34 g/dL (31-36); Mean Corpuscular Hemoglobin 30 pg (27-31); Mean Corpuscular Volume 89 fL (80-97); Mean Platelet Volume 8.8 fL (7.4-10.4); Platelet Count 247 10^3/uL (150-450); Red Blood Count 4.37 10^6 /uL (3.70-4.87); Red Cell Distribution Width 15 % (10-15); White Blood Count 7.7 10^3/uL (3.5-10.8)
[2019-07-16 16:26] LABS: ALT 20 U/L (7-52); AST 38 U/L (13-39); Albumin 4.1 g/dL (3.2-5.2); Albumin/Globulin Ratio 1.5 (1-3); Alkaline Phosphatase 51 U/L (34-104); Anion Gap 6 mmol/L (2-11); BUN/Creatinine Ratio 16.2 (8-20); Blood Urea Nitrogen 11 mg/dL (6-24); CO2 Carbon Dioxide 29 mmol/L (22-32); Calcium 9.3 mg/dL (8.6-10.3); Chloride 100 mmol/L (101-111); EGFR African American 104.1 (>60); Globulin 2.7 g/dL (2-4); Glucose 115 mg/dL (70-100); Potassium 3.9 mmol/L (3.5-5.0); Sodium 135 mmol/L (135-145); Total Protein 6.8 g/dL (6.4-8.9)
[2019-07-16 16:28] LABS: INR 1.09 (0.82-1.09)
[2019-07-16 16:33] LABS: Troponin I 4.64 ng/mL (<0.03)
[2019-07-16] MEDS ORDERED: Aspirin TAB* 325 MG PO ONE (16:44)
[2019-07-16] MEDS ORDERED: Heparin DRIP 25,000 UNITS(*) 25,000 UNITS/500 ML BAG IV SCH (17:00)
[2019-07-16] MEDS ORDERED: Aspirin 81 mg CHEW TAB* 81 MG TAB.CHEW PO ONE (17:00)
[2019-07-16] MEDS ORDERED: Heparin VIAL(*) 5000 UNITS/ML VIAL (FIVE THOUSAND) IV PRN (17:02)
[2019-07-16] MEDS ORDERED: Ticagrelor* 90 MG TAB PO ONE ×2 (17:12→17:37)
[2019-07-16 17:29] LABS: Troponin I 6.22 ng/mL (<0.03)
[2019-07-16] MEDS ORDERED: Midazolam* 1 MG/ML 5 ML VIAL (5 MG) ONE (17:30)
[2019-07-16] MEDS ORDERED: fentaNYL* 50 MCG/ML 2 ML VIAL (100 MCG VIAL) ONE (17:30)
[2019-07-16] MEDS ORDERED: Lidocaine 1% INJ* 10 MG/ML 30 ML SDV ONE (17:31)
[2019-07-16] MEDS ORDERED: nitroGLYCERIN DRIP* 25,000 MCG/250 ML BTL ONE ×2 (17:31→17:43)
[2019-07-16] MEDS ORDERED: VERAPAMIL 2.5 MG/ML 2 ML VIAL ** 5 mg/2 ml ONE (17:31)
[2019-07-16] MEDS ORDERED: Heparin(*) 1000 UNIT/ML 10 ML VIAL CATH LAB IV ONE (17:31)
[2019-07-16] MEDS ORDERED: Heparin 2 UNITS/ML IVPREMIX* 3,000 ML IV ONE (17:31)
[2019-07-16] MEDS ORDERED: Iohexol 350 (CONTRAST) 200 ML MDV IV ONE ×2 (17:31→17:32)
[2019-07-16] MEDS ORDERED: Metoprolol Tartrate IV* 1 MG/ML 5 ML VIAL ONE (17:36)
[2019-07-16] MEDS ORDERED: Amiodarone 360 MG IVPREMIX* 0 MG/0 ML BAG IV ONE (17:41)
--- NOTE | 2019-07-16 18:01 | ECHO ---
*[facility]* [place] [address] Fax #: [phone] Limited Transthoracic Echocardiogram Patient: Vee Ceja : 1950 Study Date: 07/16/2019 Age: 68 Gender: F HR: 99 bpm Height: 65 in /165.1 cm BSA: 1.68 m^2 Weight: 136.7 lb /62.1 kg BMI: 22.8 kg/m^2 *Card Hand: * Jackie Silva *Referring Physician: * Jose C Browne MD ; Scar Short MD *Reading Physician: * Jose C Browne MD Indications: Chest Pain, unspecified. Conclusions Summary: - Left ventricle: Wall thickness is mildly increased. Systolic function is mildly to moderately reduced. The estimated ejection fraction is 30-35%. Akinesis of the apical myocardium. - The more pronounced hypokinesis and WMA are involving the mid-apical septal, lateral and apex of LV. - Mild-moderate mitral regurgitation - This is a limited study done in ER to evaluate left ventricle ejection fraction and segmental WMA. Study data: Transthoracic echocardiogram, limited study. Procedure: Transthoracic echocardiography was performed. Image quality was good. Location: Emergency department. Patient status: Inpatient. Patient room number: 17. Rhythm: Atrial fibrillation. Findings Left ventricle: Wall thickness is mildly increased. Systolic function is mildly to moderately reduced. The estimated ejection fraction is 30-35%. Regional wall motion abnormalities: Akinesis of the apical myocardium. Mitral valve: There is moderate regurgitation. Measurements Left ventricle Value Ref Right ventricle Value Ref MATTHEW, LAX 4.4 cm 3.8 - 5.2 MATTHEW, LAX 2.5 cm ---- ESD, LAX 3.5 cm 2.2 - 3.5 FS, LAX (L) 20 % 27 - 45 Aortic root Value Ref PW, ED, LAX (H) 1.4 cm 0.6 - 0.9 Root diam 2.8 cm <3.9 FS (L) 20 % 27 45 Mid-wall FS 8 % --------- Ascending aorta Value Ref PW, ED (H) 1.4 cm 0.6 - 0.9 AAo AP diam, S 2.8 cm ---- PW/ID, ED 0.32 --------- AAo AP diam/bsa, S 1.7 cm/m^2 ---- Ventricular septum Value Ref IVS, ED (H) 1.2 cm 0.6 - 0.9 Legend: (L) and (H) ellie values outside specified reference range. Prepared and electronically signed by Jose C Browne MD 07/16/2019 18:01
[2019-07-16] MEDS ORDERED: NS 0.9% 1000 ML** 1,000 ML IV SCH (18:45)
[2019-07-16 19:50] LABS: Magnesium 1.8 mg/dL (1.9-2.7)
[2019-07-16] MEDS ORDERED: Metoprolol Tartrate TAB* 25 MG PO SCH (20:00)
[2019-07-16 20:05] LABS: TSH (Thyroid Stimulating Horm) 2.85 mcIU/mL (0.34-5.60)
[2019-07-16 20:43] LABS: Troponin I 6.53 ng/mL (<0.03)
[2019-07-16] MEDS ORDERED: Magnesium Sulfate 1 GM IV* 1 GM/100 ML BAG IV ONE (21:00)
--- NOTE | 2019-07-16 21:01 | CONS ---
CC: Mike Eng NP; Dr. Cam Silva MD,[facility] * INTERVENTIONAL CARDIOLOGY CONSULT: DATE OF CONSULT: 07/16/19 PRIMARY CARE PROVIDER: Mike Eng NP. INDICATION FOR THE CONSULT: Asked by Dr. Browne (who is called by the emergency room) to see the patient regarding abnormal troponins with a history of recent chest discomfort and possible acute RJ-[id number]-tnmyynvni myocardial infarction per Dr. Browne. HISTORY OF PRESENT ILLNESS: The patient is a 68-year-old female with no prior cardiac history. Specifically, she denies any history of myocardial infarction , congestive heart failure, or significant heart rhythm disturbance that she is aware of. Yesterday, she had had a tooth pulled and later that night had the onset of severe tooth discomfort and shortly after that had severe chest discomfort that was sharp in nature that lasted according to her some 3 minutes. After that, the chest discomfort went away, but she continued to have the tooth discomfort. 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 She stated this happened approximately at least an hour and a half prior to arrival. She said that prior to the chest discomfort, she had mild nauseousness and fatigue. She states that the chest discomfort had gotten better and by the time I saw her, the chest discomfort was completely gone. The first EKG in the emergency room revealed very subtle ST-segment elevation in V2 and perhaps subtly in V3 and V4 and V5, perhaps slightly in aVL. There was no definitive reciprocal changes inferiorly. Compared to the T wave to P wave segment in the inferior leads, the ST segments were not elevated in those leads. A repeat EKG was performed which revealed poor R-wave in V1 through V3 with possible Q-waves with mild ST-segment elevation seen throughout those leads and subtly in V4. The inferior leads did not show any acute changes. The aVL was borderline for mild possible ST- segment elevation. Her initial troponin came back at 4.6 from 3:[address] was when Dr. Browne got the phone call and then he referred the patient to me to see. A repeat troponin from 4:52 came back as 6.22. A bedside echo was performed to look for regional wall motion abnormality and showed what appeared to be almost a classic panel for Takotsubo syndrome with apical ballooning and borderline hyperdynamic proximal wall motion. Overall EF was moderately reduced. The question of proceeding emergently to the cardiovascular laboratory was addressed with the patient as I believed it was what needed to be done in order to rule out the presence of underlying coronary artery disease versus Takotsubo syndrome with normal coronaries and as such, the risks and benefits were explained, she understood them and wished to proceed. The patient had been given 4000 units of heparin and full-dose aspirin , but we held on the Brilinta at this point pending review of her coronary anatomy. Coronary artery risk factors include a negative history of hypertension, a negative history of diabetes, no history of hyperlipidemia. She does not smoke and she had no family history definitive for early coronary artery disease as the patient is unclear about this since she was adopted. Her only medical problem that she relates to is that she has glaucoma and has eyedrops for this. She had pain medication for her tooth including hydrocortisone, ibuprofen to take as needed and she was on vitamin C at home. Also, she was reportedly on an inhaler on a p.r.n. basis. PAST MEDICAL HISTORY: 1. Glaucoma PAST SURGICAL HISTORY: Includes: 1. Hysterectomy. 2. Appendectomy. 3. Right cataract surgery. SOCIAL HISTORY: She does not smoke, she does not abuse alcohol or other substances. She lives with her spouse who is with her at the time of presentation. REVIEW OF SYSTEMS: Symptoms pertinent proceeding to the cardiovascular laboratory include negative history of hematochezia, negative history of hematemesis, negative history of hematuria. No history of contrast allergy that she is aware of. No history of TIA. No history of stroke and no history of kidney disease. PHYSICAL EXAMINATION: Physical examination when I saw her revealed pleasant female currently resting in no acute distress. Blood pressure elevated at 170/ 101 with pulse of 80, respirations 15, O2 saturation 95-98%. Neck is supple without increased JVP. Carotid without bruits. Chest was clear to A and P with no active rales, rhonchi, or wheezes. Heart revealed no visible heaves, no palpable heaves or thrills. Normal S1, S2 with no significant systolic or diastolic murmur. Abdomen is soft, nontender without organomegaly. Extremities are without clubbing, cyanosis, or aleksandr pitting edema. Peripheral pulses are intact. Femoral pulses noted without bruits. Neuro: The patient is alert, oriented with normal mentation. Musculoskeletal: The patient with normal gait. Psychiatric: The patient with normal affect. DIAGNOSTIC STUDIES/LAB DATA: Electrocardiograms were as described above. Laboratory results revealed hemoglobin and hematocrit of 13.1 and 39, white count 7700, platelet count 247,000. Sodium 135, potassium 3.9, chloride 100, bicarb 29. BUN and creatinine 11 and 0.7. Glucose 115. Troponin 4.64, initially at 3:44 p.m.; repeat 6.22 at 4:52 p.m. Bedside echo was as described above, a limited study. OVERALL ASSESSMENT: Ms. Ceja presents now with chest discomfort and abnormal EKG and positive cardiac enzymes. The echocardiogram is very strongly suspicious for Takotsubo syndrome; however, clearly we need to rule out the presence of underlying coronary artery disease in light of the significant left ventricular systolic dysfunction. We will proceed emergently to the cardiovascular laboratory and adjust the management pending the results. She had been given heparin bolus of 4000 units and aspirin, and we will consider other medications as needed. Of note, the patient seemed to go into rapid heart rhythm that appeared to be atrial fibrillation, although cannot rule out SVT as no EKG was available, the patient was on monitor. A 5 mg of Lopressor was given intravenously and she immediately converted to sinus rhythm. [id number]/[facility] #: [id number] MTDD
--- NOTE | 2019-07-16 22:34 | CATH ---
CC: Mike Eng NP; Dr. Cam Silva.,[facility] * CARDIAC CATHETERIZATION REPORT: DATE OF PROCEDURE: 07/16/19 - ROOM #ICU-02 INDICATION FOR THE PROCEDURE: The patient presents with chest discomfort, elevated troponin with abnormal EKG and echocardiogram showing left ventricular systolic dysfunction with appearance of takotsubo syndrome, rule out the presence of an underlying coronary artery disease. PROCEDURE: Coronary arteriography. CONSENT: The patient was interviewed and examined in the emergency room where the risks and benefits were explained. The patient understood them and wished to proceed. APPROACH UTILIZED: The right radial artery was assessed under ultrasound and found to be acceptable for an approach and as such, this was the approach utilized. PRE-CARDIAC CATHETERIZATION LABORATORY RESULTS: Hemoglobin and hematocrit of 13.1 and 39 with platelet count of 274,000. BUN of 11, creatinine 0.68. Sodium 135, potassium 3.9, chloride 100, bicarb 29, calcium 9.3. INR of 1.09. Troponin was 6.22. EQUIPMENT UTILIZED: 1. Right radial artery sheath was a 6-Lithuanian Glidesheath slender. 2. Diagnostic coronary catheter was a 5-Lithuanian TIG4 catheter. 3. Diagnostic guidewire was a 260 length Peterson curved guidewire. 4. Closure device utilized was a regular length Vasc Band closure device. MEDICATIONS GIVEN DURING THE PROCEDURE: Included radial artery cocktail of 300 mcg of nitroglycerin and 3 mg of verapamil (the patient had already received a heparin bolus of 4000 units in the emergency room). The patient also received 5 mg of Lopressor IV at the end of the case for rapid atrial fibrillation, also received 1 mg of Versed. IV nitroglycerin was started for hypertension. DESCRIPTION OF PROCEDURE: The patient was brought to the cardiovascular laboratory where a formal time-out was performed. She was prepped and draped in a sterile fashion and under ultrasound guidance, right radial artery was cannulated and sheath was placed. Coronary arteriography was then performed. Following this, the catheter and the sheath were removed and hemostasis was obtained with a Vasc Band. The reverse Barbeau was a B. The total contrast used was 60 cc of Omnipaque dye. The radiation exposure included 4.4 minutes of fluoro time. The air kerma radiation was 683 mGy. The DAP radiation was 4044 microgray per meter squared. RESULTS: CORONARY ARTERIOGRAPHY: A. Right coronary artery - a dominant vessel supplying the PDA and 3 posterior left ventricular branches in addition to multiple acute marginal branches. There were minimal luminal irregularities seen in the vessel, but no significant stenosis noted. Mild 10% to 20% narrowing was noted in the proximal and mid portion. B. Left coronary artery: 1. Left main - widely patent, no obstructive disease. 2. Left anterior descending artery. The left anterior descending artery supplying 3 diagonal branches extending to the apical region and on to the distal inferior wall. There was no significant narrowing seen throughout the vessel. Of note, the mid to distal portion appeared to be intramyocardial, but no significant systolic milking was noted. 3. Circumflex artery - a nondominant vessel supplying a thin first obtuse marginal branch followed by a mid and low lying obtuse marginal branch. There was no significant obstruction seen throughout the course of the vessel with minimal luminal irregularities. OVERALL ASSESSMENT: No significant stenotic coronary artery disease seen in the presence of left ventricular systolic function with apical ballooning characteristic to it on echocardiogram and well preserved proximal portions of the inferior and anterior wall. Given these findings and the clinical history, it is suggestive of takotsubo syndrome. The patient will be started on beta-amena therapy with consideration of adding low dose THANH inhibitors. Troponins will be cycled with consideration for anticoagulation if there is a significant elevation in the troponin greater than 10 ng/mL. Repeat echocardiogram with a complete study will be done in the a.m. [id number]/[facility] #: [id number] [facility]
[2019-07-16] MEDS: PTO:Bimatoprost 0.01% OPHTH (NF) 2.5 ML BTL BOTH EYES SCH (22:36)
[2019-07-16] MEDS ORDERED: Metoprolol Tartrate TAB* 25 MG PO ONE (23:00)
[2019-07-16 23:44] LABS: Troponin I 4.96 ng/mL (<0.03)
--- NOTE | 2019-07-17 00:46 | HP ---
CC: Mike Eng NP; Dr. Short* HISTORY AND PHYSICAL: DATE OF ADMISSION: 07/16/19 PROVIDER: Karime Saab NP PRIMARY CARE PROVIDER: Mike Eng NP ATTENDING PHYSICIAN WHILE IN THE HOSPITAL: Dr. Dennis Good * (dictated by Karime Saab NP). CHIEF COMPLAINT: Chest pain. HISTORY OF PRESENT ILLNESS: Ms. Ceja is a 68-year-old female with past medical history significant for palpitations and glaucoma, who presented to the emergency room with complaints of chest pain. The patient reports that approximately 1.5 weeks ago she had dental pain and was seen in the ER, went to her dentist, she had an abscess. She was started on clindamycin for treatment of her infection, for which she finished yesterday. She does report that yesterday she had a tooth pulled at approximately 2 p.m. and at that time also had a bone graft done with stitches. The patient reports that upon returning home she developed throbbing, excruciating pain in her mouth rated at 10, so she called her dentist who called in pain medication for her. The patient reports that when she was sitting in the pharmacy waiting for her pain medication, she had a jab in her chest about 1745 p.m. She reports that lasted for a few minutes. She rated that pain in the center of her chest at 7 to 8. The patient reports that approximately 11 p.m. she still had excruciating pain in her . She took more of her pain medication and more Advil. She reports that she was able to sleep and woke up at 4 a.m. She reports at that time her mouth pain was then manageable and had been able to manage her pain with Tylenol. The patient does report that she was feeling groggy all day and today approximately 1:30 p.m. she developed sharp pain in the center of her chest that intermittently radiated to the left and right side of her chest and up into her left jaw. Due to this pain, she presented to the emergency room for further evaluation. The patient reports that she consistently had this pain from 1:30 until she was in the emergency room at 3:30. The patient denies any other symptoms. Denies any fever or chills. Denies any shortness of breath , cough, congestion. She denies any rhinorrhea or sore throat. Denies any orthopnea or nocturnal dyspnea. Denies any abdominal pain, nausea, vomiting. She does report some diarrhea while she was taking clindamycin, which has resolved. She denies any skin ulcerations. A 14-point review of systems was completed, all others were negative. While in the emergency room, the patient had routine lab work drawn. She was found to have a troponin that was elevated at 4.6. Initial troponin was 4.64. She had an EKG that showed ST elevation in II, III, and aVF. Due to her chest pain and concern for acute coronary syndrome, the patient was seen by Dr. Short and taken to the [facility]. She was seen by Dr. Browne who recommended a transthoracic echocardiogram. She did have a limited transthoracic echocardiogram in the emergency room to evaluate her ejection fraction, which was significantly reduced to 30% to 35% with akinesis at the apical myocardium and pronounced hypokinesis and WMA involving the mid apical septal and lateral and apex of the LV. Due to these findings, the patient was taken to the cardiac [facility] for further evaluation and possible treatment for acute coronary syndrome. Due to her chest pain and needing cardiac catheterization, Hospital Medicine was asked to admit the patient to the hospital. PAST MEDICAL HISTORY: Significant for glaucoma and palpitations. PAST SURGICAL HISTORY: 1. Tooth extraction. 2. Heel surgery. 3. Appendectomy. 4. Hysterectomy. 5. Bilateral shoulder surgery. 6. Carpal tunnel release. 7. Cataract surgery. HOME MEDICATIONS: Include: 1. Lumigan eye drops. 2. Aspirin 81 mg p.o. daily. 3. Vitamin C one tablet p.o. daily. 4. Calcium 1 tablet p.o. daily. 5. Magnesium 1 tablet p.o. daily. ALLERGIES: MORPHINE. FAMILY HISTORY: She was adopted. Unknown. SOCIAL HISTORY: The patient denies any smoking or illicit drug use. She does report occasional alcohol use. She is . She lives with her Feliz who is her healthcare proxy and would make decisions if she was unable to make her own decisions. She is a full code. REVIEW OF SYSTEMS: A 14-point review of systems was completed. All pertinent positives were mentioned in the HPI, otherwise were negative. PHYSICAL EXAMINATION GENERAL: At this time, Ms. Ceja is alert and oriented, resting in her hospital bed. She is in no acute distress. VITAL SIGNS: Blood pressure 149/92, heart rate 76, respirations 16, O2 saturation 98%, temperature was 98. HEENT: Head is atraumatic, normocephalic. Eyes: EOMs are intact. Sclerae are anicteric and not pale. Oral mucosa is moist. NECK: Supple. LUNGS: Clear to auscultation bilaterally. No wheezes, rales, or rhonchi. CARDIAC: S1 and S2. Irregular rate and rhythm. No rubs or gallops. ABDOMEN: Soft and nontender. Bowel sounds are present x4. EXTREMITIES: She is able to move all 4 extremities. There is no clubbing or cyanosis. NEUROLOGIC: She is awake, alert, oriented x3. Speech is clear. Thought process is intact. There are no gross focal deficits. SKIN: Intact. DIAGNOSTIC STUDIES/LAB DATA: WBCs are 7.7, RBCs 4.37, hemoglobin 13.1, hematocrit 39, platelet count is 247. INR is 1.09. D-dimer was less than 200. Sodium 135, potassium 3.9, chloride was 100, carbon dioxide was 29, anion gap was 6, BUN was 11, creatinine 0.68, glucose is 115, calcium 9.3, magnesium 1.8. ASTs were 38, ALTs were 20, alkaline phosphatase was 51. Troponin was 4.64, repeat was 6.22. TSH was 2.85. She had a transthoracic echocardiogram, impression: Left ventricular wall thickness is mildly increased, systolic function is mild to moderately reduced, estimated ejection fraction was 30% to 35%, akinesis of the apical myocardium, more pronounced hypokinesis and WMA involving the mid apical septal, lateral and apex of the LV. [id number] mitral regurgitation. This was a limited evaluation to evaluate the left ventricle ejection fraction and segmental WMA. She had an electrocardiogram, which showed sinus rhythm at a rate of 90 and she does have a mild ST elevation in lead II, III, aVF. IMPRESSION AND PLAN: Ms. Ceja is a 68-year-old female with past medical history significant for glaucoma and palpitations, who presented to the emergency room with complaints of chest pain. She was emergently taken to the [facility] due to her chest pain. Our recommendations are as follows: 1. Chest pain. The patient was taken to the cardiac [facility] to rule out acute coronary syndrome. There were no findings of acute coronary artery disease requiring revascularization or stenting. It was felt that her reduced ejection fraction is related to Takotsubo syndrome. At this time, we will continue her on baby aspirin and she was placed on metoprolol 12.5 mg p.o. daily. Consultation to Cardiology has also been placed as well as Interventional Cardiology. 2. Transient atrial fibrillation. The patient did have a transient episode of atrial fibrillation during her cardiac catheterization. At that time, she received 5 of metoprolol IV. Her magnesium level was 1.8. I will give her 1 g of magnesium. The patient was started on metoprolol 12.5 mg. We will continue to monitor her on telemetry. I did discuss with the patient her stroke risk and the possibility of needing anticoagulation due to her transient episode of atrial fibrillation. This was discussed with Dr. Short as well and will be readdressed in the morning. Her CHADS-VASc score is 2 giving her a moderate stroke risk associated with atrial fibrillation. 3. Elevated troponin. The patient does have an elevated troponin. At this time, it is 6.22. A repeat troponin has been completed and is currently pending. Should her troponin level go above 10, at that time she will be started on a heparin drip per Dr. Short's recommendations. At this time, we will hold off anticoagulation. 4. Glaucoma. The patient should continue on Lumigan eye drops as previously prescribed. 5. Hypomagnesemia. The patient does have a magnesium level of 1.8. She did have a transient episode of atrial fibrillation and is having premature atrial contractions on the monitor. I will give her 1 g of magnesium and repeat a magnesium level in the a.m. 6. FEN. She can have heart-healthy, caffeine-okay diet. 7. DVT prophylaxis. I will place her on SCDs. 8. Code status. She is a full code. TIME SPENT: Time spent on this admission was 60 minutes, greater than half that time was spent at the bedside reviewing the events leading thus far to her hospitalization, performing physical exam, and reviewing my plan of care. I have discussed this with my attending, Dr. Dennis Good; he is in agreement with my plan. KARIME SAAB, LEARNING SPECIALIST [id number]/[facility] #: [id number] [facility] HOSPITALYvonne
[2019-07-17 05:19] LABS: ABS Eosinophils 0.2 10^3/ul (0-0.6); ABS Lymphocytes 1.6 10^3/ul (1.0-4.8); ABS Monocytes 0.6 10^3/ul (0-0.8); ABS Neutrophils 4.1 10^3/ul (1.5-7.7); Eosinophil % 2.4 %; Hematocrit 36 % (35-47); Hemoglobin 12.2 g/dL (12.0-16.0); Lymphocyte % 24.6 %; Mean Corpuscular HGB Conc 34 g/dL (31-36); Mean Corpuscular Hemoglobin 30 pg (27-31); Mean Corpuscular Volume 89 fL (80-97); Platelet Count 201 10^3/uL (150-450); Red Blood Count 4.05 10^6 /uL (3.70-4.87); Red Cell Distribution Width 15 % (10-15); White Blood Count 6.6 10^3/uL (3.5-10.8)
[2019-07-17 05:36] LABS: ALT 19 U/L (7-52); Albumin 3.3 g/dL (3.2-5.2); Albumin/Globulin Ratio 1.2 (1-3); Alkaline Phosphatase 44 U/L (34-104); BUN/Creatinine Ratio 14.8 (8-20); Blood Urea Nitrogen 9 mg/dL (6-24); CO2 Carbon Dioxide 24 mmol/L (22-32); Calcium 8.2 mg/dL (8.6-10.3); Chloride 106 mmol/L (101-111); Cholesterol 170 mg/dL; EGFR Non-African American 97.5 (>60); Globulin 2.7 g/dL (2-4); Glucose 110 mg/dL (70-100); HDL Cholesterol 57.7 mg/dL; LDL Cholesterol 91 mg/dL; Magnesium 1.9 mg/dL (1.9-2.7); Sodium 136 mmol/L (135-145); Triglycerides 105 mg/dL
[2019-07-17 05:40] LABS: Anion Gap 6 mmol/L (2-11); Troponin I 3.07 ng/mL (<0.03)
[2019-07-17] MEDS ORDERED: Perflutren Lipid Microsphere* 3 ML VIAL ONE (08:30)
--- NOTE | 2019-07-17 08:42 | PN ---
Subjective Date of Service: 07/17/19 Interval History: Admitted yesterday, now status post cath This morning had ECHO done, reports to me no chest pain, no trouble breathing. Family History: Unchanged from Admission Social History: Unchanged from Admission Past Medical History: Unchanged from Admission Objective Active Medications: Aspirin (Aspirin 81 Mg Chew Tab*) 81 mg PO DAILY [facility] Bimatoprost (Lumigan 0.01% Ophth (Nf)) 1 drop BOTH EYES BEDTIME [facility]; Protocol Last Admin: 07/16/19 22:36 Dose: 1 drop Metoprolol Tartrate (Lopressor Tab*) [address] [facility] Vital Signs - 8 hr 07/17/19 07/17/19 07/17/19 01:00 02:00 03:00 Temperature Pulse Rate 63 63 66 Respiratory 16 18 18 Rate Blood Pressure 116/63 111/61 122/73 (mmHg) O2 Sat by Pulse 95 94 94 Oximetry 07/17/19 07/17/19 07/17/19 03:22 04:00 05:00 Temperature 98.2 F Pulse Rate 64 64 Respiratory 18 17 Rate Blood Pressure 128/68 124/61 (mmHg) O2 Sat by Pulse 94 95 Oximetry 07/17/19 07/17/19 07/17/19 06:00 06:09 07:00 Temperature Pulse Rate 74 62 71 Respiratory 17 15 22 Rate Blood Pressure 127/75 129/69 (mmHg) O2 Sat by Pulse 97 96 97 Oximetry 07/17/19 07/17/19 07/17/19 07:42 08:00 08:19 Temperature 98.6 F Pulse Rate 69 Respiratory 17 18 Rate Blood Pressure 118/70 (mmHg) O2 Sat by Pulse 95 Oximetry Oxygen Devices in Use Now: None Appearance: She is lying in bed, comfortably, not in distress Eyes: PERRLA Ears/Nose/Mouth/Throat: Mucous Membranes Moist Respiratory: Symmetrical Chest Expansion and Respiratory Effort, Clear to Auscultation Cardiovascular: NL Sounds; No Murmurs; No JVD, RRR, No Edema Abdominal: NL Sounds; No Tenderness; No Distention, No Hepatosplenomegaly Neurological: Alert and Oriented x 3 Result Diagrams: 07/17/19 05:10 07/17/19 07:35 Microbiology and Other Data: Microbiology 07/16/19 22:50 Nasal Screen MRSA (PCR) - Final Nasal Mrsa Not Detected Assess/Plan/Problems-Billing Assessment: - Patient Problems (1) Takotsubo cardiomyopathy Current Visit: Yes Status: Acute Code(s): I51.81 - TAKOTSUBO SYNDROME SNOMED Code(s): 285553825 Comment: EKG has mild elevated ST segments and troponins were elevated- now status post cath with relatiely clean coronaries. EF is low at 30-35%. continue aspirin Will d/w cardiology regarding their further recommendations Full ECHO done today- will f/u the results on BB, BP is at goal- (2) Atrial fibrillation Current Visit: Yes Status: Acute Code(s): I48.91 - UNSPECIFIED ATRIAL FIBRILLATION SNOMED Code(s): 91298454 Comment: resolved. now on metoprolol Given her age, and gender- her CHADSVASC score would be a 2, at this point anticoagulation has been held off, per cardiology note- they wanted to d/w patient and come up with the decision, was noted to be in sinus rhythm this morning on the telemonitor.
[2019-07-17] MEDS: Aspirin 81 mg CHEW TAB* 81 MG TAB.CHEW PO SCH (08:46)
[2019-07-17] MEDS: Metoprolol Tartrate TAB* 25 MG PO SCH ×2 (08:46→21:02)
--- NOTE | 2019-07-17 18:04 | ECHO ---
*[facility]* [place] [address] Fax #: [phone] Transthoracic Echocardiogram Patient: Vee Ceja : 1950 Study Date: 07/16/2019 Age: 68 Gender: F HR: 73 bpm Height: 65 in /165.1 cm BSA: 1.69 m^2 Weight: 137 lb /62.3 kg BMI: 22.8 kg/m^2 *Tapeman: * Jackie Silva *Referring Physician: * Scar Short MD *Reading Physician: * Cam Silva MD Indications: Chest Pain, unspecified. Takotsubo cardiomyopathy. History: Palpitations. Atrial fibrillation. Conclusions Summary: - Note, this echocardiogram was completed 07/17/19. - Left ventricle: Normal left ventricular size. Wall thickness is mildly increased. Systolic function is moderately reduced. The estimated ejection fraction is 35-40%. Large area of apical akinesis. - Normal cardiac chamber sizes. - Functionally benign heart valves. - Appears similiar to prior echocardiogram completed 07/16/19. Study data: Transthoracic echocardiogram. EXAM WAS PERFORMED ON 07/17/19 AT 7:35 am, UNABLE TO MODIFY DATE AND TIME IN HEADER OF REPORT. Procedure: Transthoracic echocardiography was performed. Image quality was fair. Intravenous Definity , 2 mlswas administered. Complete 2D, spectral Doppler, and color flow Doppler. Location: ICU Patient status: Inpatient. Patient room number: 2. Rhythm: Normal sinus rhythm. Findings Left ventricle: Normal left ventricular size. Wall thickness is mildly increased. Systolic function is moderately reduced. The estimated ejection fraction is 35-40%. Regional wall motion abnormalities: Large area of apical akinesis. Left ventricular diastolic function parameters are normal. Right ventricle: The cavity size is normal. Systolic function is normal. Ventricular septum: The ventricular septum is normal. Left atrium: The atrium is normal in size. Right atrium: The atrium is normal in size. Mitral valve: The valve is structurally normal. There is trace to mild regurgitation. Aortic valve: The valve is trileaflet. The leaflets are normal thickness. There is no evidence of stenosis. There is no significant regurgitation. Tricuspid valve: The leaflets are normal thickness. There is trace to mild regurgitation. Pulmonic valve: The valve is structurally normal. There is no evidence of stenosis. There is no regurgitation. Aorta: The aortic root appears normal. The aortic arch appears normal. Pericardium: There is no significant pericardial effusion. Pulmonary arteries: Systolic pressure is within the normal range, estimated to be 35 mm Hg. Pulmonary artery is not well seen. Systemic veins: Inferior vena cava: The vessel is normal in size. Pulmonary veins: Not well visualized. Measurements Left ventricle Value Ref Aortic valve continued Value Ref MATTHEW, SMM 4.8 cm 3.8 - 5.2 VTI, S 28.5 cm ----- ESD, SMM 3.2 cm 2.2 - 3.5 Mean grad, S 5.0 mm Hg ----- FS, SMM 33 % 27 - 45 Peak grad, S 8.0 mm Hg ----- Mid-wall FS, SMM 15 % 15 - 23 LVOT/AV, VTI ratio 0.71 ----- PW, ED SMM 0.9 cm 0.6 - 0.9 BRADEN, VTI 2.23 cm^2 ----- IVS/PW, ED SMM 1.22 --------- BRADEN, Vmax 2.19 cm^2 ----- PW/ID ratio, ED 0.2 --------- SMM Mitral valve Value Ref Rel thickness, ED 0.39 0.22 - Peak E 0.99 m/sec ----- SMM 0.42 Peak A 0.89 m/sec ----- Mass/ht^2.7, SMM 47 g/m^2.7 --------- Peak grad, D 4.0 mm Hg ----- MATTHEW/bsa, SMM 2.8 cm/m^2 --------- Peak E/A ratio 1.12 ----- LVOT Value Ref Pulmonic valve Value Ref Diam, S 2.00 cm --------- Peak grad, S 1.0 mm Hg ----- Area 3.1 cm^2 --------- NV peak v 0.57 m/sec ----- Peak yosvany, S 0.96 m/sec --------- VTI, S 20.2 cm --------- Tricuspid valve Value Ref Mean grad, S 2 mm Hg --------- TR peak v (H) 2.81 m/sec <=2.8 Peak RV-RA grad, S 32 mm Hg ----- Ventricular septum Value Ref IVS, ED SMM (H) 1.2 cm 0.6 - 0.9 Aortic root Value Ref Root diam 3.0 cm <3.9 Right ventricle Value Ref MATTHEW minor ax, A4C 2.3 cm 1.9 - 3.5 Ascending aorta Value Ref mid AAo prox diam 3.0 cm ----- Left atrium Value Ref Aortic arch Value Ref SI dim ES, LAX 3.7 cm --------- Arch diam 2.5 cm ----- Vol/bsa, ES, 1-p 19 ml/m^2 11 - 40 A4C Decending aorta Value Ref Zeeshan peak yosvany 0.6 m/sec ----- Right atrium Value Ref RA ID, major 4.2 cm --------- Inferior vena cava Value Ref RA ID, minor 2.5 cm --------- Diam 2.5 cm ----- Aortic valve Value Ref Lexi diam, ED 1.7 cm --------- Lexi diam/bsa, ED 1.0 cm/m^2 --------- Peak v, S 1.37 m/sec --------- Legend: (L) and (H) ellie values outside specified reference range. Prepared and electronically signed by Cam Silva MD 07/17/2019 18:03
[2019-07-17] MEDS: PTO:Bimatoprost 0.01% OPHTH (NF) 2.5 ML BTL BOTH EYES SCH (21:02)
[2019-07-18] MEDS: Aspirin 81 mg CHEW TAB* 81 MG TAB.CHEW PO SCH (08:08)
[2019-07-18 08:57] LABS: BUN/Creatinine Ratio 15.5 (8-20); Calcium 9.1 mg/dL (8.6-10.3); EGFR African American 99.1 (>60); EGFR Non-African American 81.9 (>60); Potassium 3.9 mmol/L (3.5-5.0)
[2019-07-18] MEDS ORDERED: Lisinopril TAB* 5 MG PO SCH (09:00)
[2019-07-18] MEDS ORDERED: Metoprolol Succinate XL TAB* 25 MG PO SCH (09:00)
[2019-07-18 11:23] VITALS: BP 124/53
--- NOTE | 2019-07-18 15:52 | DS ---
CC: Dr. Cam Silva; Dr. Scar Short; Mike Eng NP DISCHARGE SUMMARY: DATE OF ADMISSION: 07/16/19 DATE OF DISCHARGE: 07/18/19 REASON FOR ADMISSION: Chest pain. PRIMARY CARE PROVIDER: Mike Eng NP CONSULTANTS DURING THE HOSPITAL COURSE: Included Dr. Scar Short, Dr. Cam Silva. HOSPITAL COURSE: This is a 68-year-old female with past medical history of palpitations, glaucoma, who presented to the emergency room because of chest pain. She reported that about a 1-1/2 weeks ago she had dental pain and was seen by her dentist and was found to have an abscess. She was being treated with clindamycin for this. The patient reported to the emergency room because of the chest pain. In the emergency room, the patient was seen and evaluated. The patient had elevated troponins, initial troponin was 4.64 and repeat was 6.22. During the emergency room visit, the liaison inspection laboratory assistant team was called. Dr. Short was called, the superintendent job, and the patient was taken to the cardiac catheterization lab. Cardiac catheterization was done on , of which the patient was shown to have a right radial artery entry was found to have a diagnostic coronary catheterization, and was found to have a right coronary artery a dominant vessel supplying the PDA and posterior left ventricular branches in addition to multiple branches; minimal luminal irregularity was seen in the vessel, but not significant stenosis; The patient also had a left main widely patent with no obstructive disease. LAD was supplying the 3 diagonal branches. There was no significant narrowing seen throughout the vessel. Circumflex artery was a nondominant vessel and there was no significant obstruction seen throughout the course of that vessel as well. This likely was takotsubo cardiomyopathy. Through the course, the patient had a brief episode of atrial fibrillation and was given metoprolol for this. She was started on aspirin 81 mg. The patient has known AFib. Anticoagulation was not given per the direction of the qlikview developer at that time. Atrial fibrillation has not recurred through the course after that. The patient had an echocardiogram done initially in the emergency room on 07/16/19. It revealed that there is a 30% to 35% ejection fraction with akinesis of the apical myocardium. There was more pronounced hypokinesis and WMA (wall motion abnormality) involving the mid apical septal, lateral, apex of the LV. A repeat echocardiogram was also done on 07/17/19 which showed the estimated ejection fraction is 35% to 40% with a large area of apical akinesis. The patient was started on aspirin 81 mg and metoprolol. Due to depressed ejection fraction, we ordered patient for 5 mg of lisinopril. However, the patient had declined this. This morning, I had an extensive discussion with the patient regarding lisinopril and its effect in patients with cardiomyopathy such as her, including the benefits of cardiac remodeling. The patient reports that she is 68 years old and cannot be taking medication to lower her blood pressure. She states that if she takes lisinopril she is going to be admitted with a fall and states that she is not going to be taking lisinopril even though that is the recommended treatment in her condition. She understands the risks and the benefits and chooses not to take it. Discharge planning was done with the patient. PHYSICAL EXAM: Blood pressure 124/53, saturation of 99% on room air, heart rate of 61, respiratory rate of 16, temperature of 97.9 Fahrenheit. General: Well- developed, well-nourished female, lying in bed, in no acute distress. She is awake, alert, and oriented x3 with no focal neurological deficit. There is no JVD. There is no nystagmus. Heart: No chest wall tenderness. Regular rate and rhythm. No murmurs, rubs, or gallops. Lungs: There is no tachypnea. No use of accessory muscles. Lungs are clear without any wheezing, rales, or rhonchi. Abdomen: Normoactive bowel sounds. Soft, nontender, nondistended. Extremities: No lower extremity edema. No calf tenderness DISCHARGE DIAGNOSES: Include: 1. Takotsubo cardiomyopathy. 2. Atrial fibrillation, resolved, now on metoprolol. DISCHARGE CONDITION: Stable. DISCHARGE DISPOSITION: Home. DISCHARGE DIET: Heart-healthy diet. DISCHARGE MEDICATIONS: Include: 1. Aspirin 81 mg daily. 2. Albuterol multidose inhaler 2 puffs t.i.d. as needed. 3. Ascorbic acid 1000 mg daily. 4. Bimatoprost 0.01% ophthalmic solution at bedtime. 5. Calcium carbonate/mag carb 1 tab daily at bedtime. 6. Hydrocodone/ibuprofen 1 tab 4 times a day as needed for pain. 7. Metoprolol succinate 25 mg XL daily. FOLLOWUP INSTRUCTIONS: The patient's followup instructions include to follow up with: 1. Dr. Cam Silva in 4 to 6 weeks, phone number was provided. The patient states that she will call and make the appointment first thing on Saturday. 2. Dr. Lonny Gutierrez on 07/22/19 at 2:30 p.m. 3. Mike Eng NP, in 4 to 7 days, her PCP. The patient to call and make an appointment. Additional discharge instructions were provided to the patient including discharge instruction specifically for cardiac catheterization. Of note, the patient had a cardiac catheterization through her right radial site. This morning, the right radial site was noted slightly discolored; otherwise, there was no abscess or tenderness noted. [id number]/[facility] #: [id number] MTDD
== END 2019-07-18 12:23 | disposition home or self-care (01) | DRG 287 ==
LOC: ED 15:13 → ICU 18:31 → MEDTELE 07-17 16:00
PROVIDERS: ADMIT Internal Medicine; ATTEND Internal Medicine
PROC: B211YZZ Fluoroscopy of Multiple Coronary Arteries using Other Contrast (ICD-10-PCS; principal; 2019-07-16 17:30)
DX: I51.81 Takotsubo syndrome (principal); I48.91 Unspecified atrial fibrillation; R74.8 Abnormal levels of other serum enzymes; E83.42 Hypomagnesemia; H40.9 Unspecified glaucoma; Z79.82 Long term (current) use of aspirin; Z79.899 Other long term (current) drug therapy; Z88.5 Allergy status to narcotic agent
CPT/HCPCS: 36415; 76937; 80048; 80053; 80061; 83735; 84443; 84484; 85025; 85347; 85379; 85610; 87641; 93005; 93306; 93308; 93458; 99156; 99157; 99285; A9270-GY; C8929; J0282; J1644; J2250; J3010; J3475; J3490